=== PATIENT | female | born 1985 | race Caucasian/White ===

== ENCOUNTER 2017-02-02 16:40 | Emergency (ER) | payer MEDICAID ==
[~2017-02-02] VITALS: Ht 157.5 cm; Wt 120.0 kg
[2017-02-02 17:56] LABS: BASOPHILS % 0.8 % (0.0-2.0); EOSINOPHILS % 0.8 % (0.0-5.0); HEMATOCRIT. 29.2 % (36.0-48.0); HEMOGLOBIN. 9.1 g/dL (12.0-16.0); LYMPHOCYTES % 24.2 % (20.0-50.0); MEAN CORPUSCULAR HEMOGLOBIN 22.6 pg (28.0-32.0); MEAN CORPUSCULAR VOLUME 72.2 fL (81.0-99.0); MEAN PLATELET VOLUME 8.3 fl (7.4-10.4); MONOCYTES % 7.5 % (2.0-8.0); NEUTROPHILS % 66.7 % (40.0-76.0); PLATELET 272 x1000/uL (130-400); RED BLOOD CELL COUNT 4.05 mill/uL (4.2-5.4); RED CELL DISTRIBUTION WIDTH 17.1 % (11.6-14.6)
[2017-02-02 18:02] LABS: CHLORIDE 103 mEq/L (98-107)
[2017-02-02 18:09] LABS: CARBON DIOXIDE 28 mEq/L (21-32)
[2017-02-02 18:12] LABS: B-HCG QUANTITATIVE < 1 mIU/mL (<3)
[2017-02-02 22:40] VITALS: BP 121/69
== END 2017-02-02 22:40 | disposition home or self-care (01) ==
LOC: ER 16:40
DX: N93.8 Other specified abnormal uterine and vaginal bleeding (principal); N83.209 Unspecified ovarian cyst, unspecified side; D64.9 Anemia, unspecified; Z98.890 Other specified postprocedural states; Z91.012 Allergy to eggs
CPT/HCPCS: 36415; 76830; 76856; 80048; 81025; 84702; 85025; 86850; 86900; 99285

== ENCOUNTER 2017-07-25 11:38 | Emergency (ER) | payer OTHER ==
[~2017-07-25] VITALS: Ht 157.5 cm; Wt 120.0 kg
[2017-07-25] MEDS ORDERED: ACETAMINOPHEN 500MG TABLET PO ONE (15:00)
[2017-07-25 15:44] LABS: BASOPHILS % 0.4 % (0.0-2.0); EOSINOPHILS % 1.7 % (0.0-5.0); HEMATOCRIT. 26.5 % (36.0-48.0); HEMOGLOBIN. 8.3 g/dL (12.0-16.0); LYMPHOCYTES % 15.7 % (20.0-50.0); MEAN CORPUSCULAR HEMOGLOBIN 20.9 pg (28.0-32.0); MEAN CORPUSCULAR VOLUME 66.9 fL (81.0-99.0); MEAN PLATELET VOLUME 8.8 fl (7.4-10.4); MONOCYTES % 10.4 % (2.0-8.0); NEUTROPHILS % 71.8 % (40.0-76.0); PLATELET 255 x1000/uL (130-400); RED BLOOD CELL COUNT 3.96 mill/uL (4.2-5.4); RED CELL DISTRIBUTION WIDTH 22.1 % (11.6-14.6)
[2017-07-25 15:46] LABS: CHLORIDE 108 mEq/L (98-107)
[2017-07-25 15:53] LABS: CARBON DIOXIDE 28 mEq/L (21-32)
[2017-07-25 16:13] LABS: PLATELET ESTIMATE NORMAL
[2017-07-25 16:42] LABS: CLARITY URINE CLEAR (CLEAR); COLOR URINE YELLOW (YELLOW); KETONES URINE NEGATIVE (NEGATIVE); LEUKOCYTE ESTERASE URINE NEGATIVE (NEGATIVE); NITRITE URINE NEGATIVE (NEGATIVE); OCCULT BLOOD URINE NEGATIVE (NEGATIVE); PROTEIN URINE NEGATIVE (NEGATIVE); SPECIFIC GRAVITY URINE 1.012 (1.005-1.030); UROBILINOGEN URINE 0.2 E.U./dL (0.2-1.0)
[2017-07-25 17:30] VITALS: BP 118/91
== END 2017-07-25 17:31 | disposition home or self-care (01) ==
LOC: ER 15:18
DX: K29.00 Acute gastritis without bleeding (principal); R30.0 Dysuria
CPT/HCPCS: 36415; 80053; 81003; 81025; 85025; 99284; Z7610

== ENCOUNTER 2019-07-04 18:07 | Emergency (ER) | payer MEDICAID, OTHER ==
[~2019-07-04] VITALS: Ht 157.5 cm; Wt 132.0 kg
[2019-07-04 21:49] LABS: BASOPHILS % 0.7 % (0.0-2.0); EOSINOPHILS % 3.9 % (0.0-5.0); HEMATOCRIT. 27.7 % (36.0-48.0); HEMOGLOBIN. 8.4 g/dL (12.0-16.0); LYMPHOCYTES % 32.9 % (20.0-50.0); MEAN CORPUSCULAR HEMOGLOBIN 21.5 pg (28.0-32.0); MEAN CORPUSCULAR VOLUME 70.9 fL (81.0-99.0); MEAN PLATELET VOLUME 8.1 fl (7.4-10.4); MONOCYTES % 11.1 % (2.0-8.0); NEUTROPHILS % 51.4 % (40.0-76.0); PLATELET 376 x1000/uL (130-400); RED BLOOD CELL COUNT 3.91 mill/uL (4.2-5.4)
[2019-07-04 21:50] LABS: CHLORIDE 108 mEq/L (98-107)
[2019-07-04 22:00] LABS: B-HCG QUANTITATIVE < 1 mIU/mL (<3)
[2019-07-04] MEDS ORDERED: MEDROXYPROGESTERONE ACET 5MG TABLET PO SCH (22:15)
[2019-07-04 23:40] VITALS: BP 105/58
== END 2019-07-04 23:45 | disposition home or self-care (01) ==
LOC: ER 18:07
DX: N93.8 Other specified abnormal uterine and vaginal bleeding (principal); D64.9 Anemia, unspecified; Z98.890 Other specified postprocedural states; Z91.012 Allergy to eggs
CPT/HCPCS: 36415; 80053; 81025; 84702; 85025; 86850; 86900; 99283